=== PATIENT | female | born 2000 | race Caucasian/White ===

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

== ENCOUNTER 2023-01-24 15:54 | Emergency (ER) | payer OTHER ==
[~2023-01-24] VITALS: Ht 172.7 cm; Wt 81.0 kg
--- NOTE | 2023-01-24 16:18 | ED Abdominal Pain ---
General Chief Complaint: Abdominal/GI Problems Stated Complaint: LOWER ABD PAIN LT SIDE Source of Information: Patient Exam Limitations: No Limitations History of Present Illness Date Seen by Provider: Jan 24, 2023 Time Seen by Provider: 16:05 Initial Comments 22-year-old female presents the emergency department today for left mid abd ominal pain. She has had a pressure in this area for about a month. She saw her primary care doctor who thought it might be GI versus a cyst in her pelvic region. He gave her a "powder to drink" which has not really helped. She states she has had cysts in the past and this does not feel similar to those experiences. The pain went from dull to sharp 2 days ago and has been a co nstant sharp stabbing pain in her left mid to lower abdomen since that time. She denies any fevers or chills. She has had nausea without any vomiting. Last bowel movement was 2 days ago per her report normal. Last menstrual cycle was a couple of days ago normal in timing. No urinary symptoms. She has never had similar pains in the past. She has never had surgery. All other systems reviewed and negative except documented per HPI. Voice recognition software was used to help create this chart Allergies and Home Medications Allergies Coded Allergies: No Known Allergies (Unverified Allergy, Mild, 11/17/08) Patient Home Medication List Home Medication List Reviewed: Yes Albuterol (Proventil 0.5% Rt) 2.5 Mg/0.5 Ml Rj, (Reported) Entered as Reported by: CASSI GRANDA on 04/27/09 1447 Amoxicillin/Clavulanate K (Augmentin 400-57 Tab Chew) 1 Tab.chew Tab.chew, 2 EACH PO BID Prescribed by: SAEED VILLALBA on 04/27/09 1545 Lansoprazole (Prevacid) 15 Mg Capsule., (Reported) Entered as Reported by: CASSI GRANDA on 04/27/09 1448 Trimethoprim/Sulfamethoxazole (Bactrim Susp 200 Mg-40MG/5 Ml) 30 Ml Susp, 3 TSP PO BID Prescribed by: CHLOE ROCHA on 11/17/08 8705 Review of Systems Review of Systems Constitutional: see HPI Past Njjlhqg-[id number]-Cuppkv Hx Patient Social History Tobacco Use?: No Use of E-Cig and/or Vaping dev: No Substance use?: No Alcohol Use?: No Seasonal Allergies Seasonal Allergies: No Past Medical History Surgeries: No Respiratory: No Asthma Cardiac: No Neurological: No Genitourinary: No Gastrointestinal: No Musculoskeletal: No Endocrine: No HEENT: No Cancer: No Psychosocial: No Integumentary: No Blood Disorders: No Physical Exam Vital Signs Vital Signs - First Documented 01/24/23 16:07 Temp 36.5 Pulse 108 Resp 16 B/P (MAP) 123/86 (98) O2 Delivery Room Air Capillary Refill : Height/Weight/BMI Height: '" Weight: lbs. oz. kg; 24.00 BMI Method: General Appearance: WD/WN, moderate distress HEENT: normal ENT inspection, pharynx normal Respiratory: chest non-tender (Appears to be in pain), lungs clear, normal breath sounds, no respiratory distress, no accessory muscle use Cardiovascular: regular rate, rhythm, no murmur Gastrointestinal: normal bowel sounds, soft, tenderness (Diffuse tenderness that seems to be focal in the left mid abdomen. There is voluntary guarding diffusely worse in the left mid abdomen. No rebound tenderness. Abdomen is soft. Nondistended.) Extremities: normal range of motion, non-tender, normal inspection Neurologic/Psychiatric: alert, oriented x 3 Skin: normal color, warm/dry Progress/Results/Core Measures Results/Orders Lab Results Laboratory Tests Test 01/24/23 16:30 01/24/23 16:31 Range/Units Urine Color YELLOW Urine Clarity CLEAR Urine pH 5.5 5-9 Urine Specific [place] 1.020 1.016-1.022 Urine Protein NEGATIVE NEGATIVE Urine Glucose (UA) NEGATIVE NEGATIVE Urine Ketones NEGATIVE NEGATIVE Urine Nitrite NEGATIVE NEGATIVE Urine Bilirubin NEGATIVE NEGATIVE Urine Urobilinogen 0.2 < = 1.0 MG/DL Urine Leukocyte Esterase 1+ H NEGATIVE Urine RBC (Auto) 1+ H NEGATIVE Urine RBC 0-2 /HPF Urine WBC 5-10 H /HPF Urine Squamous Epithelial Cells 2-5 /HPF Urine Crystals NONE /LPF Urine Bacteria MODERATE H /HPF Urine Casts NONE /LPF Urine Mucus NEGATIVE /LPF Urine Culture Indicated YES White Blood Count 8.7 4.3-11.0 10^3/uL Red Blood Count 4.37 3.80-5.11 10^6/uL Hemoglobin 13.8 11.5-16.0 g/dL Hematocrit 40 35-52 % Mean Corpuscular Volume 92 80-99 fL Mean Corpuscular Hemoglobin 32 25-34 pg Mean Corpuscular Hemoglobin Concent 35 32-36 g/dL Red Cell Distribution Width 11.9 10.0-14.5 % Platelet Count 333 130-400 10^3/uL Mean Platelet Volume 9.2 9.0-12.2 fL Immature Granulocyte % (Auto) 0 % Neutrophils (%) (Auto) 48 42-75 % Lymphocytes (%) (Auto) 37 12-44 % Monocytes (%) (Auto) 8 0-12 % Eosinophils (%) (Auto) 6 0-10 % Basophils (%) (Auto) 1 0-10 % Neutrophils # (Auto) 4.2 1.8-7.8 10^3/uL Lymphocytes # (Auto) 3.2 1.0-4.0 10^3/uL Monocytes # (Auto) 0.7 0.0-1.0 10^3/uL Eosinophils # (Auto) 0.5 H 0.0-0.3 10^3/uL Basophils # (Auto) 0.1 0.0-0.1 10^3/uL Immature Granulocyte # (Auto) 0.0 0.0-0.1 10^3/uL Sodium Level 138 135-145 MMOL/L Potassium Level 3.8 3.6-5.0 MMOL/L Chloride Level 106 98-107 MMOL/L Carbon Dioxide Level 18 L 21-32 MMOL/L Anion Gap 14 5-14 MMOL/L Blood Urea Nitrogen 15 7-18 MG/DL Creatinine 0.74 0.60-1.30 MG/DL Estimat Glomerular Filtration Rate 119 BUN/Creatinine Ratio 20 Glucose Level 85 70-105 MG/DL Calcium Level 9.8 8.5-10.1 MG/DL Corrected Calcium 9.6 8.5-10.1 MG/DL Total Bilirubin 0.4 0.1-1.0 MG/DL Aspartate Amino Transf (AST/SGOT) 18 5-34 U/L Alanine Aminotransferase (ALT/SGPT) 13 0-55 U/L Alkaline Phosphatase 90 40-136 U/L Total Protein 7.7 6.4-8.2 GM/DL Albumin 4.3 3.2-4.5 GM/DL Lipase 14 8-78 U/L Serum Test, Qualitative NEGATIVE NEGATIVE My Orders Orders - LAILATULIO DO Hcg,Qualitative Serum (01/24/23 16:15) Ua Culture If Indicated (01/24/23 16:15) Cbc With Automated Diff (01/24/23 16:15) Comprehensive Metabolic Panel (01/24/23 16:15) Lipase (01/24/23 16:15) Ct Abdomen/Pelvis W (01/24/23 16:15) Ketorolac Injection (Ketorolac Injection (01/24/23 16:30) Fentanyl Injection (Fentanyl Injection (01/24/23 16:30) Urine Culture (01/24/23 16:30) Iohexol Injection (Omnipaque 350 Mg/Ml 1 (01/24/23 17:15) Ns (Ivpb) 100 Ml (Sodium Chloride 0.9% 1 (01/24/23 17:15) Medications Given in ED Current Medications Medications Dose Ordered Sig/Debbie Route Start Time Stop Time Status Last Admin Dose Admin Fentanyl Citrate 50 mcg ONCE ONCE IVP 01/24/23 16:30 01/24/23 16:31 DC 01/24/23 16:32 50 MCG Iohexol 100 ml ONCE ONCE IV 01/24/23 17:15 01/24/23 17:16 DC 01/24/23 17:21 80 ML Ketorolac Tromethamine 15 mg ONCE ONCE IVP 01/24/23 16:30 01/24/23 16:31 DC 01/24/23 16:31 15 MG Sodium Chloride 100 ml ONCE ONCE IV 01/24/23 17:15 01/24/23 17:16 DC 01/24/23 17:21 80 ML Vital Signs/I&O 01/24/23 16:07 Temp 36.5 Pulse 108 Resp 16 B/P (MAP) 123/86 (98) O2 Delivery Room Air Departure Communication (Admissions) Patient is hemodynamically stable with a nonsurgical abdominal exam. CT scan is negative for any acute intra-abdominal pathology. I have independently reviewed the images. Lab work-up is unremarkable with no leukocytosis. She does have a urinary tract infection, given antibiotics here in the emergency department and discharged with the same. Impression Primary Impression: Left sided abdominal pain Disposition: 01 HOME, SELF-CARE Condition: Stable Departure-Patient Inst. Referrals: DUSTY JHA MD (PCP/Family) Primary Care Physician Patient Instructions: Abdominal Pain, Adult ED, Urinary Tract Infection, Adult (DC) Add. Discharge Instructions: You were seen in the emergency department today for abdominal pain. You do have a mild urinary tract infection however no emergent conditions identified for your symptoms today. Take the antibiotics as prescribed until they are gone. Follow-up with your primary doctor for further evaluation and treatment recommendations. Return to the emergency department for any severe concerns All discharge instructions reviewed with patient and/or family. Voiced understanding. Scripts Cephalexin (Cephalexin) 500 Mg Tablet 500 MG PO BID for 5 Days, #10 TAB Prov: TULIO ULLOA DO 01/24/23 TULIO ULLOA DO Jan 24, 2023 16:18
[2023-01-24] MEDS ORDERED: KETOROLAC INJ 15 MG/ML VIAL IVP ONE (16:30)
[2023-01-24] MEDS ORDERED: fentaNYL INJECTION 100 MCG/2 ML VIAL IVP ONE (16:30)
[2023-01-24 16:38] LABS: BASOPHILS # (AUTO) 0.1 10^3/uL (0.0-0.1); BASOPHILS % (AUTO) 1 % (0-10); EOSINOPHILS # (AUTO) 0.5 10^3/uL (0.0-0.3); EOSINOPHILS % (AUTO) 6 % (0-10); HEMATOCRIT 40 % (35-52); HEMOGLOBIN 13.8 g/dL (11.5-16.0); LYMPHOCYTES # (AUTO) 3.2 10^3/uL (1.0-4.0); LYMPHOCYTES % (AUTO) 37 % (12-44); MEAN CORPUSCULAR HEMOGLOBIN 32 pg (25-34); MEAN CORPUSCULAR HGB CONC 35 g/dL (32-36); MEAN CORPUSCULAR VOLUME 92 fL (80-99); MEAN PLATELET VOLUME 9.2 fL (9.0-12.2); MONOCYTES # (AUTO) 0.7 10^3/uL (0.0-1.0); MONOCYTES % (AUTO) 8 % (0-12); NEUTROPHILS # (AUTO) 4.2 10^3/uL (1.8-7.8); NEUTROPHILS % (AUTO) 48 % (42-75); PLATELET COUNT 333 10^3/uL (130-400); WHITE BLOOD COUNT 8.7 10^3/uL (4.3-11.0)
[2023-01-24 16:46] LABS: CLARITY,URINE CLEAR; COLOR,URINE YELLOW; GLUCOSE, URINE (UA) NEGATIVE (NEGATIVE); PH,URINE 5.5 (5-9); PROTEIN,URINE NEGATIVE (NEGATIVE)
[2023-01-24 16:47] LABS: BACTERIA,URINE MODERATE /HPF; BILIRUBIN,URINE NEGATIVE (NEGATIVE); KETONES,URINE NEGATIVE (NEGATIVE); LEUKOCYTE ESTERASE ,URINE 1+ (NEGATIVE); NITRITE,URINE NEGATIVE (NEGATIVE); RBC,URINE 0-2 /HPF
[2023-01-24 16:47] LABS: ALBUMIN 4.3 GM/DL (3.2-4.5)
[2023-01-24 16:48] LABS: POTASSIUM 3.8 MMOL/L (3.6-5.0)
[2023-01-24 16:49] LABS: CALCIUM 9.8 MG/DL (8.5-10.1)
[2023-01-24 16:50] LABS: TOTAL PROTEIN 7.7 GM/DL (6.4-8.2)
[2023-01-24 16:52] LABS: BILIRUBIN,TOTAL 0.4 MG/DL (0.1-1.0)
[2023-01-24 16:54] LABS: CREATININE SERUM 0.74 MG/DL (0.60-1.30)
[2023-01-24] MEDS ORDERED: NS 100 ML (IVPB) BAG IV ONE (17:15)
[2023-01-24] MEDS ORDERED: IOHEXOL 350 MG/ML 100 ML (OMNIPAQUE 350) VIAL IV ONE (17:15)
--- NOTE | 2023-01-24 17:36 | Diagnostic Imaging Report ---
Procedure: CT abdomen and pelvis with contrast. Technique: Multiple contiguous axial images were obtained through the abdomen and pelvis after administration of intravenous contrast. Auto Exposure Controls were utilized during the CT exam to meet ALARA standards for radiation dose reduction. All CT scans use one or more of the following dose optimizing techniques: automated exposure control, MA and/or KvP adjustment based on patient size and exam type or iterative reconstruction. Date: January 24, 2023. Indication: 22-year-old female, left-sided abdominal pain and vomiting. Comparison: None. Findings: The lung bases are clear. The heart is not enlarged. There is no pericardial effusion. The liver is unremarkable in size and contour. There is no identified liver lesion. The main, right, left portal veins are patent. The gallbladder is unremarkable. There is no biliary ductal dilation. The main pancreatic duct is not abnormally dilated. Unremarkable appearance of the pancreatic parenchyma. The spleen is normal in size. The adrenal glands are unremarkable. Unremarkable appearance of the renal parenchyma. The urinary collecting systems are not distended. There is no identified renal or ureteral stone. Urinary bladder is unremarkable. The intestinal tract is not distended. The appendix is best seen on axial image 129 and is unremarkable. There is no free intraperitoneal air. There is no drainable fluid collection. There is no free fluid in the abdomen or pelvis. There is no identified abnormally enlarged lymph node in the abdomen or pelvis meeting CT size criteria for adenopathy. There is moderate disc height loss at L5-S1. There is no identified acute bony abnormality of the lumbar spine. Impression: 1. No identified acute abnormality in the abdomen or pelvis. Dictated by: Dictated on workstation # [id number]
[2023-01-24] MEDS ORDERED: CEPH500T PO (17:39)
[2023-01-24] MEDS ORDERED: CEPHALEXIN 250 MG CAPSULE PO STA (17:40)
[2023-01-24 17:57] VITALS: BP 127/80
== END 2023-01-24 17:57 | disposition home or self-care (01) ==
LOC: EDUNIT# 15:54 → ER 15:56
DX: R10.32 Left lower quadrant pain (principal)
CPT/HCPCS: 36415; 74177; 80053; 81000; 83690; 84703; 85025; 87088

== ENCOUNTER → 2023-04-11 | Outpatient (CLI) | payer OTHER ==
[~2023-04-11] MED LIST changes: +CEPH500T PO
--- NOTE | 2023-04-11 14:39 | Diagnostic Imaging Report ---
PROCEDURE: Pelvic comp/transvaginal sonogram. TECHNIQUE: Complete transabdominal and transvaginal pelvic ultrasound was performed. In addition, limited pelvic Doppler was performed. INDICATION: Lower abdominal pain. Uterus is anteverted measuring 7.1 x 3.1 x 4.5 cm. Endometrium is 1 mm in thickness. No myometrial mass is identified. Right ovary measures 2.7 x 2.0 x 2.2 cm and left ovary measures 2.2 x 1.3 x 2.2 cm. Both ovaries contain multiple follicles, largest on the right measuring 14 mm. There is blood flow to both ovaries. No adnexal mass is detected. There is trace free pelvic fluid in the posterior cul-de-sac. IMPRESSION: 14 mm dominant follicle or cyst in the right ovary. The study is otherwise unremarkable. Dictated by: Dictated on workstation # [id number]
== END ==
LOC: RAD 10:41
PROVIDERS: ATTEND Family Medicine
DX: N83.201 Unspecified ovarian cyst, right side (principal)
CPT/HCPCS: 76830; 76856